=== PATIENT | male | born 2000 | race Caucasian/White ===

== ENCOUNTER 2024-08-17 01:41 | Emergency (ER) | payer OTHER, SELFPAY ==
[2024-08-17 01:45] VITALS: BP 128/71; PULSE 63; RESP 16; TEMP 36.9; O2SAT 99; BMI 27.1
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
[2024-08-17 04:05] VITALS: BP 128/71; PULSE 63; RESP 16; TEMP 36.9; O2SAT 99
== END 2024-08-17 03:20 | disposition home or self-care (01) ==
PROVIDERS: Emergency Provider Emergency Medicine
DX: S00.412A Abrasion of left ear, initial encounter (principal); V43.52XA Car driver injured in collision with other type car in traffic accident, initial encounter; W22.11XA Striking against or struck by driver side automobile airbag, initial encounter; Y93.89 Activity, other specified; Y92.414 Local residential or business street as the place of occurrence of the external cause; Y99.9 Unspecified external cause status
CPT/HCPCS: 99282; 99284